=== PATIENT | male | born 2000 | race Caucasian/White ===

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

== ENCOUNTER 2022-10-06 13:27 | Inpatient (IN) | payer OTHER ==
[~2022-10-06] VITALS: Ht 167.6 cm; Wt 77.0 kg
[~2022-10-06 13:27] MED LIST changes: +Norco 5-325 Ta1 EACH PO; +OXCA150 PO
[2022-10-06 13:54] LABS: BASOPHILS ABSOLUTE AUTO 0.05 K/mm3 (0.00-0.23); BASOPHILS PERCENT AUTO 1 % (0-2); EOSINOPHILS ABSOLUTE AUTO 0.07 K/mm3 (0.00-0.68); EOSINOPHILS PERCENT AUTO 1 % (0-6); Hematocrit 49.2 % (37.0-53.0); Hemoglobin 17.7 g/dL (13.5-17.5); IMMATURE GRAN ABSOLUTE AUTO 0.04 K/mm3 (0.00-0.10); IMMATURE GRAN PERCENT AUTO 0 % (0-1); LYMPHOCYTES ABSOLUTE AUTO 2.31 K/mm3 (0.84-5.20); LYMPHOCYTES PERCENT AUTO 23 % (21-46); MONOCYTES ABSOLUTE AUTO 0.76 K/mm3 (0.16-1.47); MONOCYTES PERCENT AUTO 8 % (4-13); Mean Corpuscular HGB 29.9 pg (26.0-34.0); Mean Corpuscular Volume 83 fL (80-100); Mean Platelet Volume 9.7 fL (9.1-12.4); NEUTROPHILS ABSOLUTE AUTO 6.87 K/mm3 (1.96-9.15); NEUTROPHILS PERCENT AUTO 68 % (41-73); Platelet Count 380 K/mm3 (150-400); RDW Coefficient Variation 11.8 % (11.7-14.2); RDW Standard Deviation 35.6 fL (35.1-46.3); Red Blood Cell Count 5.91 M/mm3 (4.30-5.90)
[2022-10-06 14:07] LABS: Ethanol (Alcohol), Blood, Med <3 mg/dL; Salicylate <1.7 mg/dL (2.8-20.0)
[2022-10-06 14:12] LABS: Acetaminophen, Random <2.0 ug/mL (10.0-30.0); Alanine Aminotransfer (ALT/SGP 34 U/L (12-78); Albumin, Blood 4.3 g/dL (3.4-5.0); Albumin/Globulin Ratio 1.2 (0.8-1.8); Alk Phos 45 U/L (50-136); Anion Gap 9 mmol/L (6-16); Aspartate Aminotrans (AST/SGOT 24 U/L (12-37); Bilirubin, Total 0.5 mg/dL (0.1-1.0); Blood Urea Nitrogen 9 mg/dL (8-24); Bun/Creatinine Ratio 10.3 (12.0-20.0); CO2, Blood 22 mmol/L (21-32); Calcium, Blood 9.7 mg/dL (8.5-10.1); Chloride, Blood 110 mmol/L (98-108); Creatinine, Blood 0.87 mg/dL (0.60-1.20); Globulin, Blood 3.6 g/dL (2.2-4.0); Glomerular Filtration Rate 125 (60-); Glucose, Blood 166 mg/dL (70-99); Potassium, Blood 4.7 mmol/L (3.5-5.5); Sodium, Blood 141 mmol/L (136-145); Total Protein, Blood 7.9 g/dL (6.4-8.2)
[2022-10-06 19:02] VITALS: BP 130/88
--- NOTE | 2022-10-07 04:47 | NUR ---
1:1 AT BEDSIDE, PATEINT COOPERATIVE TO CARE, DROWSY, WAKES EASILY ALERT AND ORIENTED, TELE ON, NO ACUE CHANGES, PATIENT TO BE WATCHED FOR 48 HOURS FOR RISK OF COMA, MAKES NEEDS KNOWN, WILL RELAY TO AM RN
[2022-10-07 05:10] VITALS: BP 111/72
[2022-10-07 05:31] LABS: BASOPHILS ABSOLUTE AUTO 0.03 K/mm3 (0.00-0.23); BASOPHILS PERCENT AUTO 0 % (0-2); EOSINOPHILS ABSOLUTE AUTO 0.06 K/mm3 (0.00-0.68); EOSINOPHILS PERCENT AUTO 1 % (0-6); Hematocrit 44.2 % (37.0-53.0); Hemoglobin 15.4 g/dL (13.5-17.5); IMMATURE GRAN ABSOLUTE AUTO 0.02 K/mm3 (0.00-0.10); IMMATURE GRAN PERCENT AUTO 0 % (0-1); LYMPHOCYTES ABSOLUTE AUTO 2.17 K/mm3 (0.84-5.20); LYMPHOCYTES PERCENT AUTO 21 % (21-46); MONOCYTES ABSOLUTE AUTO 1.27 K/mm3 (0.16-1.47); MONOCYTES PERCENT AUTO 13 % (4-13); Mean Corpuscular HGB 29.6 pg (26.0-34.0); Mean Corpuscular HGB Conc 34.8 g/dL (31.5-36.5); Mean Corpuscular Volume 85 fL (80-100); Mean Platelet Volume 9.6 fL (9.1-12.4); NEUTROPHILS PERCENT AUTO 65 % (41-73); Platelet Count 325 K/mm3 (150-400); RDW Coefficient Variation 11.9 % (11.7-14.2); RDW Standard Deviation 36.9 fL (35.1-46.3); White Blood Cell Count 10.15 K/mm3 (4.00-11.30)
[2022-10-07 06:11] LABS: Magnesium, Blood 2.1 mg/dL (1.6-2.4)
[2022-10-07 06:16] LABS: Albumin, Blood 3.7 g/dL (3.4-5.0); Albumin/Globulin Ratio 1.3 (0.8-1.8); Bilirubin, Total 0.6 mg/dL (0.1-1.0); Bun/Creatinine Ratio 8.3 (12.0-20.0); Calcium, Blood 9.2 mg/dL (8.5-10.1); Creatinine, Blood 1.08 mg/dL (0.60-1.20); Globulin, Blood 2.8 g/dL (2.2-4.0); Potassium, Blood 3.8 mmol/L (3.5-5.5); Total Protein, Blood 6.5 g/dL (6.4-8.2)
[2022-10-07 07:37] VITALS: BP 118/69
[2022-10-07 16:28] VITALS: BP 129/74
[2022-10-07 19:21] VITALS: BP 129/78
--- NOTE | 2022-10-07 19:46 | NUR ---
SHIFT SUMMARY: BING IS A&OX4. VSS, NO ACUTE EVENTS THIS SHIFT. SI PRECAUTIONS AND HOLD DISCONTINUED THIS SHIFT. NEW ORDER FOR TRAZODONE PLACED BY DR. JEFFERSON. PT'S MOTHER REPORTED THAT PT IS UNABLE TO TOLERATE ANY SSRI'S AND VOICED CONCERN REGARDING THE TRAZODONE. 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 CALLED AND DISCUSSED WITH HOSPITALIST WHO FELT THAT IT WAS APPROPRIATE FOR PT TO MAKE A DETERMINATION ON HIS OWN IF HE WISHES TO BEGIN THE MEDICATION NOW OR WAIT AND FOLLOWUP WITH [facility] OUTPATIENT. DISCUSSED WITH PT AND HIS MOTHER WHO FELT THEY WOULD RATHER WAIT AND FOLLOWUP OUTPATIENT BEFORE STARTING A NEW MEDICATION WHICH MAY CAUSE AN ADVERSE REACTION. PT DID COMPLAIN OF A HEADACHE, HOSPITALIST GAVE ORDER FOR AP[facility]. PT HAS TOLERATED PO INTAKE WELL AND REPORTS URINATING WITHOUT DIFFICULTY. HE IS INDEPENDENT IN THE ROOM. REPORT GIVEN TO ENGINE ASSEMBLER RN.
[2022-10-08 04:41] VITALS: BP 136/83
[2022-10-08 05:35] LABS: Bun/Creatinine Ratio 8.6 (12.0-20.0); Calcium, Blood 8.8 mg/dL (8.5-10.1); Creatinine, Blood 1.05 mg/dL (0.60-1.20); Potassium, Blood 3.3 mmol/L (3.5-5.5)
--- NOTE | 2022-10-08 05:35 | NUR ---
SHIFT SUMMARY PT SITTING UP IN BED - MOM PATRICK AT BEDSIDE, BEDSIDE REPORT DONE, PT DENIED SUICIDE IDEATION, PT REFUSED TRAZADONE PER MOM AND JEAN METZ RN- HOSPITALIST AWARE THAT PT HAD REACTION TO SSRI IN THE PAST- TRAZADONE IS A SSRI ANTAGONIST AND PT AND MOM HAS CONCERNS OF REACTION, PT C/O HEADACHE 07/23 - GAVE TYLENOL AND SODA FOR CAFFEINE= IGNITION RISK ASSESSMENT DONE- PT DENIES HAVING IGNITION ITEMS, BED LOW POSITION, CALL LIGHT WITHIN REACH, BED ALARM IN PLACE
[2022-10-08 08:19] VITALS: BP 125/75
--- NOTE | 2022-10-08 09:38 | NUR ---
PT DENIES SUICIDAL THOUGHTS. DENIES THOUGHTS OF SUICIDAL PLANS. PT IS STOIC, FLAT AFFECT. TOLERATED BREAKFAST AND REQUESTING TO REST CURRENTLY. PT HAS LONG CORD CALL LIGHT. NO MONITOR. WILL DO HOURLY ROUNDING AND PRN ROUNDING TO ASSESS AND ENSURE PT'S SAFETY. PT DENIES ZAMBRANO AND DENIES TYLENOL CURRENTLY. PLAN TO DC TODAY WITH OP [facility]
--- NOTE | 2022-10-08 14:33 | NUR ---
PT DC'D WITH DC INSTRUCTIONS HAS AN S.I. PLAN THAT HE SIGNED AND HIS MOM SIGNED. MOM IS TAKING PT HOME AND TO [facility] TODAY BEFORE 1500. SENT HOME WITH BELONGINGS INCLUDING CELL PHONE. DECLINED WHEELCHAIR, FAMILY ESCORTED PT OUT, PT AMBULATED STEADY ON FEET, TIME [id number]
== END 2022-10-08 12:40 | disposition home or self-care (01) | DRG 918 ==
LOC: ER 13:27 → MEDS 16:48 → ENPENDDIS 10-08 10:30 → MEDS 10-08 12:40
PROVIDERS: Emergency Medicine; Family Medicine; ADMIT Hospitalist
DX: T42.8X2A Poisoning by antiparkinsonism drugs and other central muscle-tone depressants, intentional self-harm, initial encounter (principal); F12.90 Cannabis use, unspecified, uncomplicated; F32.A Depression, unspecified; F41.9 Anxiety disorder, unspecified; F95.2 Tourette's disorder; Z88.1 Allergy status to other antibiotic agents; Z88.2 Allergy status to sulfonamides; Z90.49 Acquired absence of other specified parts of digestive tract; Z91.51 Personal history of suicidal behavior
CPT/HCPCS: 36415; 80048; 80053; 83735; 85025; 93005; 93010; 99285-25; A9270; G0378; G0480; J7120

== ENCOUNTER 2024-07-18 00:42 | Emergency (ER) | payer OTHER ==
[~2024-07-18] VITALS: Ht 162.6 cm; Wt 81.7 kg
[2024-07-18 05:09] VITALS: BP 144/95
== END 2024-07-18 05:11 | disposition home or self-care (01) ==
LOC: ER 00:42
DX: S93.401A Sprain of unspecified ligament of right ankle, initial encounter (principal); F95.2 Tourette's disorder; X50.1XXA Overexertion from prolonged static or awkward postures, initial encounter; Z88.2 Allergy status to sulfonamides; Z88.1 Allergy status to other antibiotic agents
CPT/HCPCS: 29515; 73610; 99283-25